=== PATIENT | female | born 1955 | race African-American/Black ===

== ENCOUNTER 2018-04-29 13:04 | Emergency (ER) | payer OTHER ==
[2018-04-29 13:18] VITALS: BP 129/69; PULSE 89; TEMP 98.2; BMI 27.4
[2018-04-29] MEDS ORDERED: DIPHTH,PERTUSS(ACELL),TET 0.5 ML DISP.SYRIN IM ONE ×2 (15:01→15:06)
--- NOTE | 2018-04-29 15:08 | PDOC ---
History of Present Illness - General Chief Complaint: Injury Stated Complaint: CUT FINGER Time Seen by Provider: 04/29/18 14:33 History Source: Patient Exam Limitations: Clinical Condition - History of Present Illness Initial Comments: 04/29/18 15:02 Patient with history of insulin-dependent diabetes present with complaining laceration to right thumb from a kitchen knife. She reported binding new knife and was cutting vegetables and hand slipped and cut right thumb on a knife. Patient does not recall last tetanus vaccine. Patient denies numbness or tingling sensation to finger. Denies any other symptoms Timing/Duration: 1-3 hours Past History - Past Medical History Allergies/Adverse Reactions: Allergies Allergy/AdvReac Type Severity Reaction Status Date / Time ibuprofen Allergy Severe Hives Verified 05/16/11 09:53 Home Medications: Ambulatory Orders Glyburide [Micronase] 5 mg PO DAILY 05/16/11 Insulin Glargine,Hum.rec.anlog [Lantus] 100 units SQ DAILY 05/16/11 Amox-Tr/K Cl [Augmentin - 875Mg Tablet] 1 tab PO BID #14 tablet 04/29/18 COPD: No Diabetes: Yes (IDDM) - Immunization History Immunization Up to Date: Yes - Suicide/Smoking/Psychosocial Hx Smoking Status: No Smoking History: Never smoked Number of Cigarettes Smoked Daily: 0 Information on smoking cessation initiated: No Hx Alcohol Use: No Drug/Substance Use Hx: No Review of Systems - Review of Systems Able to Perform ROS?: Yes Is the patient limited Portuguese proficient: No Constitutional: No: Chills, Fever, Malaise, Weakness HEENTM: No: Symptoms Reported Respiratory: No: Symptoms reported Cardiac (ROS): No: Symptoms Reported Musculoskeletal: Yes: See HPI, Muscle Pain (over laceration of right thumb) Integumentary: Yes: See HPI, Other (laceration to tip of right thumb) Neurological: No: Numbness, Paresthesia, Tingling All Other Systems: Reviewed and Negative *Physical Exam - Vital Signs Last Vital Signs Temp Pulse Resp BP Pulse Ox 98.2 F 89 16 129/69 98 04/29/18 13:14 04/29/18 13:14 04/29/18 13:14 04/29/18 13:14 04/29/18 13:14 - Physical Exam Comments: 04/29/18 15:05 GENERAL: Well developed, well nourished. Awake and alert. No acute distress. CARDIOVASCULAR: Regular rate and rhythm. No murmurs, rubs, or gallops. PULMONARY: No evidence of respiratory distress. Lungs clear to auscultation bilaterally. No wheezing, rales or rhonchi. ABDOMINAL: Soft. Non-tender. Non-distended. No rebound or guarding. No organomegaly. Normoactive bowel sounds MUSCULOSKELETAL : mild tenderness to centimeters laceration with a flap to tip of right thumb with minimal bleeding. Free range of motion of thumb. SKIN: Warm and dry. Normal capillary refill. 2 cm Laceration with a flap to distal tip of right thumb with minimal bleeding. N EUROLOGICAL: Alert, awake, appropriate. No motor deficits in the thumb. Gait is normal without ataxia. PSYCHIATRIC: Cooperative. Good eye contact. Appropriate mood and affect. General Appearance: Yes: Nourished, Appropriately Dressed. No: Apparent Distress Moderate Sedation - Procedure Monitoring Vital Signs: Procedure Monitoring Vital Signs Temperature 98.2 F 04/29/18 13:14 Pulse Rate 89 04/29/18 13:14 Respiratory Rate 16 04/29/18 13:14 Blood Pressure 129/69 04/29/18 13:14 O2 Sat by Pulse Oximetry (%) 98 04/29/18 13:14 Procedures - Laceration/Wound Repair Right Lateral Plantar Finger 1st digit Wound Length: to 2.5 cm (2cm) Wound Explored: clean, no foreign body present Wound's Depth, Shape: flap Irrigated w/ Saline: Yes Betadine Prep: Yes Amount of Anesthetic (ccs): 0 Wound Repaired With: Dermabond Layer Closure: No Sterile Dressing Applied: Yes Splint Applied: No Sling Applied: No Medical Decision Making - Medical Decision Making 04/29/18 15:08 Patient presented with laceration to tip of right thumb for moderate kitchen knife this morning. Patient does not recall last tetanus vaccine. Exam significant for 2 cm laceration with a flap to distal tip of distal phalange of right thumb with bleeding. Bleeding controlled with pressure to the wound. Wound cleaned and closed with Betadine. Hemostasis achieved. Steri- Strips applied to wound. Right thumb wrapped with finger gauze to protect his finger. Patient is stable for discharge on Augmentin for infection prophylaxis. Tetanus vaccine given. Patient educated on home wound care. *DC/Admit/Observation/Transfer Diagnosis at time of Disposition: Laceration of thumb without damage to nail Qualifiers: Encounter type: initial encounter Foreign body presence: without foreign body Laterality: right Qualified Code(s): S61.011A - Laceration without foreign body of right thumb without damage to nail, initial encounter - Discharge Dispostion Disposition: HOME Condition at time of disposition: Stable Decision to Admit order: No - Prescriptions Prescriptions: Amox-Tr/K Cl [Augmentin - 875Mg Tablet] 1 tab PO BID #14 tablet - Referrals Referrals: Sole Vergara MD [Primary Care Provider] - - Patient Instructions Printed Discharge Instructions: DI for Laceration Repair With Dermabond Additional Instructions: Keep wound dry for the next 24 hours. Change dressing to wound after 48 hours and apply Neosporin or bacitracin to wound twice a day on to fully healed., To emergency room if numbness or tingling sensation to finger or worsening bleeding. - Post Discharge Activity
== END 2018-04-29 15:23 | disposition home or self-care (01) ==
LOC: JERFT 13:04
PROC: 3E0234Z Introduction of Serum, Toxoid and Vaccine into Muscle, Percutaneous Approach (ICD-10-PCS; principal; 2018-04-29)
PROC: 0HQFXZZ Repair Right Hand Skin, External Approach (ICD-10-PCS; 2018-04-29)
DX: S61.011A Laceration without foreign body of right thumb without damage to nail, initial encounter (principal); W26.0XXA Contact with knife, initial encounter; Y93.G1 Activity, food preparation and clean up; Y92.030 Kitchen in apartment as the place of occurrence of the external cause; Y99.8 Other external cause status; E11.9 Type 2 diabetes mellitus without complications; Z79.4 Long term (current) use of insulin
CPT/HCPCS: 12001; 90471; 90715; 99281-25

== ENCOUNTER 2019-04-15 22:39 | Emergency (ER) | payer OTHER ==
[2019-04-15 22:48] VITALS: BMI 25.8
--- NOTE | 2019-04-15 23:19 | PDOC ---
History of Present Illness - General Chief Complaint: Nausea/Vomiting Stated Complaint: VOMITING/DIARRHEA Time Seen by Provider: 04/15/19 23:18 - History of Present Illness Initial Comments: HPI: 63yo F with PMH of asthma presenting with vomiting, diarrhea, and abdominal pain. The pain started around 1pm and is described as "sharp." Patient has never had pain like this before. Took pepto bismol at home without relief of pain. Surgical history includes . Has had over five episodes of "bitter " tasting nonbloody vomit as well as over ten episodes of diarrhea. Patient denies recent travel or eating anything unusual. No sick contacts. Takes metformin and insulin for her diabetes and sugars have been under control. Had a colonoscopy about five years ago which showed polyps that were removed. Without urinary symptoms. No fever, but endorses chills. Denies chest pain or shortness of breath. ROS: Constitutional: no fever, +chills HEENT: no throat pain, no dysphagia Cardiovascular: no chest pain, no palpitations Respiratory: no cough, no shortness of breath Gastrointestinal: +abdominal pain, +vomiting Genitourinary: no dysuria, no hematuria Musculoskeletal: no myalgia, no arthralgia Skin: no rash, no itching Neurologic: no headache, no weakness Psych: no agitation, no anxiety PE: General: Awake, alert, and fully oriented, in no acute distress Head: No signs of trauma Eyes: EOMI, sclera anicteric ENT: Moist mucus membranes Neck: Normal ROM, supple Lungs: Lungs clear, Normal breath sounds Cardio: Regular rhythm, S1 and S2 present Abdomen: Diffusely tender to palpation, +guarding, No CVA tenderness Extremities: Normal range of motion, Distal pulses present SKIN: Warm, Dry, normal turgor Neurologic: Cranial nerves II through XII grossly intact. Normal speech ED Course/MDM: DDX including but not limited to gastroenteritis, gastritis, gastroparesis, SBO , ACS, appendicitis, diverticulitis, nephrolithiasis, pancreatitis Labs, EKG CTAP with IV contrast Morphine Zofran Fluids Famotidine 04/15/19 23:19 CBC hemolyzed; re-ordered and resent Pain improved, now 5/[address] scan 04/16/19 01:47 CBC WBC 11.9 K/mm3 (4.0-10.0) H 04/16/19 01:45 Corrected WBC (auto) Cancelled 04/16/19 00:57 RBC 4.32 M/mm3 (3.60-5.2) 04/16/19 01:45 Hgb 13.1 GM/dL (10.7-15.3) 04/16/19 01:45 Hct 40.1 % (32.4-45.2) 04/16/19 01:45 MCV 92.9 fl (80-96) 04/16/19 01:45 MCH 30.3 pg (25.7-33.7) 04/16/19 01:45 MCHC 32.7 g/dl (32.0-36.0) 04/16/19 01:45 RDW 14.2 % (11.6-15.6) 04/16/19 01:45 Plt Count 215 K/MM3 (134-434) 04/16/19 01:45 MPV 9.2 fl (7.5-11.1) 04/16/19 01:45 Absolute Neuts (auto) 10.7 K/mm3 (1.5-8.0) H 04/16/19 01:45 Absolute Lymphs (auto) Cancelled 04/16/19 00:57 Absolute Monos (auto) Cancelled 04/16/19 00:57 Absolute Eos (auto) Cancelled 04/16/19 00:57 Absolute Basos (auto) Cancelled 04/16/19 00:57 Add Manual Diff Cancelled 04/16/19 00:57 Neutrophils % 90.1 % (42.8-82.8) H 04/16/19 01:45 Lymphocytes % 4.1 % (8-40) L 04/16/19 01:45 Monocytes % 5.2 % (3.8-10.2) 04/16/19 01:45 Eosinophils % 0.1 % (0-4.5) 04/16/19 01:45 Basophils % 0.5 % (0-2.0) 04/16/19 01:45 Nucleated RBC % 0 % (0-0) 04/16/19 01:45 Platelet Estimate Cancelled 04/16/19 00:57 Platelet Comment Cancelled 04/16/19 00:57 Normal RBC Morphology Cancelled 04/16/19 00:57 Mild leukocytosis CMP Sodium 141 mmol/L (136-145) 04/16/19 00:57 Potassium 3.7 mmol/L (3.5-5.1) 04/16/19 00:57 Chloride 108 mmol/L (98-107) H 04/16/19 00:57 Carbon Dioxide 27 mmol/L (21-32) 04/16/19 00:57 Anion Gap 7 MMOL/L (8-16) L 04/16/19 00:57 BUN 11.6 mg/dL (7-18) 04/16/19 00:57 Creatinine 0.7 mg/dL (0.55-1.3) 04/16/19 00:57 Est GFR (CKD-EPI)AfAm 106.12 04/16/19 00:57 Est GFR (CKD-EPI)NonAf 91.56 04/16/19 00:57 Random Glucose 213 mg/dL (74-106) H 04/16/19 00:57 Lactic Acid 1.7 mmol/L (0.4-2.0) 04/16/19 01:45 Calcium 9.0 mg/dL (8.5-10.1) 04/16/19 00:57 Total Bilirubin 0.4 mg/dL (0.2-1) 04/16/19 00:57 AST 16 U/L (15-37) 04/16/19 00:57 ALT 27 U/L (13-61) 04/16/19 00:57 Alkaline Phosphatase 91 U/L (45-117) 04/16/19 00:57 Troponin I < 0.02 ng/ml (0.00-0.05) 04/16/19 00:57 Total Protein 6.6 g/dl (6.4-8.2) 04/16/19 00:57 Albumin 3.6 g/dl (3.4-5.0) 04/16/19 00:57 Lipase 178 U/L (73-393) 04/16/19 00:57 Electrolytes unremarkable Cr normal Lactate normal No transaminitis Lipase normal Tpn negative CT as read by imaging education faculty member: "EXAM: CT ABDOMEN AND PELVIS WITH CONTRAST No bowel obstruction or inflammation. No free fluid or free air. Normal appendix. Unremarkable liver, spleen, stomach, pancreas and gallbladder. Small cystic foci bilateral kidneys. One or more of the following dose reduction techniques were used: automated exposure control, adjustment of the mA and/or kV according to patient size, use of iterative reconstructive technique. THIS DOCUMENT HAS BEEN ELECTRONICALLY SIGNED Jonna Botello M.D" 04/16/19 03:18 UA without infection Patient feeling better and asking to go home To follow up with primary care Referral to GI Return precautions Stable for discharge Past History - Past Medical History Allergies/Adverse Reactions: Allergies Allergy/AdvReac Type Severity Reaction Status Date / Time ibuprofen Allergy Severe Hives Verified 04/15/19 22:48 Home Medications: Ambulatory Orders Glyburide [Micronase] 5 mg PO DAILY 05/16/11 Insulin Glargine,Hum.rec.anlog [Lantus] 100 units SQ DAILY 05/16/11 Amox-Tr/K Cl [Augmentin - 875Mg Tablet] 1 tab PO BID #14 tablet 04/29/18 COPD: No Diabetes: Yes (IDDM) - Immunization History Immunization Up to Date: Yes - Psycho Social/Smoking Cessation Hx Smoking Status: No Smoking History: Unknown if ever smoked Number of Cigarettes Smoked Daily: 0 Hx Alcohol Use: No Drug/Substance Use Hx: No *Physical Exam - Vital Signs Last Vital Signs Temp Pulse Resp BP Pulse Ox 100.0 F H 110 H 18 150/78 100 04/15/19 22:42 04/15/19 22:42 04/15/19 22:42 04/15/19 22:42 04/15/19 22:42 ED Treatment Course - LABORATORY CBC & Chemistry Diagram: 04/16/19 01:45 04/16/19 00:57 Discharge - Discharge Information Problems reviewed: Yes Clinical Impression/Diagnosis: Abdominal pain Qualifiers: Abdominal location: generalized Qualified Code(s): R10.84 - Generalized abdominal pain Condition: Improved Disposition: HOME - Follow up/Referral Referrals: Sole Vergara MD [Primary Care Provider] - Candy Valencia MD [Staff Physician] - - Patient Discharge Instructions Patient Printed Discharge Instructions: DI for Abdominal Pain-Adult Additional Instructions: You came into the emergency department for abdominal pain. Labs and CT imaging did not indicate acute pathology. You can take [id number] tylenol or motrin for pain. Follow the instructions on the medication bottle. Make sure you do not take too much medicine. The maximum daily dose for tylenol is 4000mg/day. The maximum daily dose for motrin is 3200mg/day. Follow-up with your primary care provider within 72 hours to discuss this ED visit and to further evaluate your symptoms. Call today or tomorrow morning and make an appointment. Your workup is not complete until you do so. We have referred you to a GI doctor. Call and make an appointment if your symptoms do not improve in the next 2-3 days. Immediate medical attention is required if you develop: worsening pain, high fevers, persistent nausea, vomiting, or any new or concerning symptoms. If you think you are having an emergency, call for emergency medical services or present to the emergency department right away. - Post Discharge Activity
[2019-04-15] MEDS ORDERED: ONDANSETRON 4 MG/2 ML VIAL IVPUSH ONE (23:50)
[2019-04-15] MEDS ORDERED: SODIUM CHLORIDE 1,000 ML IV STA (23:50)
[2019-04-15] MEDS ORDERED: morphine CARPU-JECT 4 MG/1 ML DISP.SYRIN IVPUSH ONE (23:55)
[2019-04-16] MEDS ORDERED: FAMOTIDINE 20 MG/50 ML IVPB 20 MG/50 ML MG IVPB ONE ×2 (00:22→01:20)
[2019-04-16] MEDS ORDERED: ONDANSETRON 4 MG/2 ML VIAL ONE (00:24)
[2019-04-16] MEDS ORDERED: morphine SULFATE 4 MG/ML VIAL ONE (00:24)
[2019-04-16] MEDS ORDERED: ACETAMINOPHEN 1000 MG/100 ML VIAL (NON FORMULARY) IVPB ONE (00:52)
--- NOTE | 2019-04-16 01:03 | PDOC ---
Documentation entered by Niyah Roth SCRIBE, acting as scribe for Saida Knowles MD. Saida Knowles MD: This documentation has been prepared by the Ira de león Nirvannie, SCRIBE, under my direction and personally reviewed by me in its entirety. I confirm that the documentation accurately reflects all work, treatment, procedures, and medical decision making performed by me. Attending Attestation - Resident Resident Name: Iveth Wu - ED Attending Attestation I have performed the following: I have examined & evaluated the patient, The case was reviewed & discussed with the resident, I agree w/resident's findings & plan, Exceptions are as noted - HPI HPI: 04/16/19 00:23 The patient is a 63 year old female, with a significant past medical history of IDDM, who presents to the emergency department with 1 day of abdominal pain, nausea, vomiting, and diarrhea. Patient notes her symptoms onset today at approximately 1-2pm as a sharp 8-9/10 with associated nausea, vomiting, and diarrhea. She denies recent chest pain or shortness of breath. Allergies: Ibuprofen Primary Care Physician: Sole Vallecillo - Physicial Exam PE: 04/16/19 01:02 Well-nourished well-developed 63-year-old female who presents with fever, nausea vomiting diarrhea that started today 04/16/19 01:03 Head is normocephalic atraumatic Eyes pupils equal to light and accommodation extraocular muscles are intact Neck is supple Lungs are clear to auscultation CVS is tachycardia Abdomen some diffuse abdominal tenderness No CVA tenderness Skin warm and dry Extremities no significant pitting edema, no rashes Neuro alert and oriented x3, ambulatory - Medical Decision Making 04/16/19 01:04 63-year-old female with past medical history insulin-dependent diabetes presents with 1 day of nausea vomiting and diarrhea and she had an oral temperature of 100.9 Plan CBC, IV fluids, Zofran, Offirmiv, chemistries, CT scan 04/16/19 01:[address] out [address] Arellano
[2019-04-16] MEDS ORDERED: ACETAMINOPHEN INJECTION 100 ML IVPB ONE (01:20)
[2019-04-16 01:52] LABS: BASO % 0.5 % (0-2.0); EOS % 0.1 % (0-4.5); HEMATOCRIT 40.1 % (32.4-45.2); HEMOGLOBIN 13.1 GM/dL (10.7-15.3); LYMPH % 4.1 % (8-40); MCH 30.3 pg (25.7-33.7); MCHC 32.7 g/dl (32.0-36.0); MEAN CELL VOLUME 92.9 fl (80-96); MEAN PLT VOLUME 9.2 fl (7.5-11.1); MONO % 5.2 % (3.8-10.2); NEUT % 90.1 % (42.8-82.8); PLATELET COUNT 215 K/MM3 (134-434); RBC 4.32 M/mm3 (3.60-5.2); RDW 14.2 % (11.6-15.6); WHITE BLOOD COUNT 11.9 K/mm3 (4.0-10.0)
[2019-04-16 01:55] LABS: ALBUMIN 3.6 g/dl (3.4-5.0); ALK PHOS 91 U/L (45-117); ANION GAP 7 MMOL/L (8-16); BILIRUBIN,TOTAL 0.4 mg/dL (0.2-1); BLOOD UREA NITROGEN 11.6 mg/dL (7-18); CHLORIDE 108 mmol/L (98-107); CO2 27 mmol/L (21-32); CREATININE 0.7 mg/dL (0.55-1.3); GLUCOSE,RANDOM 213 mg/dL (74-106); LIPASE 178 U/L (73-393); POTASSIUM 3.7 mmol/L (3.5-5.1); SGOT/AST 16 U/L (15-37); SGPT/ALT 27 U/L (13-61); SODIUM 141 mmol/L (136-145); TOT PROT 6.6 g/dl (6.4-8.2)
[2019-04-16 06:11] LABS: URINE APPEARANCE CLEAR; URINE BILIRUBIN NEGATIVE (NEGATIVE); URINE COLOR YELLOW; URINE GLUCOSE (UA) NEGATIVE (NEGATIVE); URINE KETONE TRACE (NEGATIVE)
[2019-04-16 06:12] LABS: PH,URINE 6.5 (5.0-8.0); URINE LEUK ESTERASE NEGATIVE (NEGATIVE); URINE NITRITE NEGATIVE (NEGATIVE); URINE PROTEIN NEGATIVE (NEGATIVE); URINE UROBILINOGEN 0.2 mg/dL (0.2-1.0)
[2019-04-16 06:13] LABS: EPI CELLS 2 /HPF (0-5/HPF); URINE RBC 3 /hpf (0-4); URINE WBC 4 /hpf (0-5)
[2019-04-16 06:47] VITALS: BP 113/71; PULSE 104; TEMP 99.7
--- NOTE | 2019-04-16 11:13 | EKG ---
Test Reason : Blood Pressure : / mmHG Vent. Rate : 109 BPM Atrial Rate : 109 BPM P-R Int : 096 ms QRS Dur : 074 ms QT Int : 488 ms P-R-T Axes : 000 032 062 degrees QTc Int : 657 ms SINUS TACHYCARDIA WITH SHORT MT BIATRIAL ENLARGEMENT NONSPECIFIC ST ABNORMALITY PROLONGED QT ABNORMAL ECG Confirmed by MD ROSALIO, LEISA ([id number]) on 04/16/2019 11:12:58 AM Referred By: Confirmed By:LEISA SANTAMARIA MD
== END 2019-04-16 06:47 | disposition home or self-care (01) ==
LOC: JER 22:39
PROC: 3E0337Z Introduction of Electrolytic and Water Balance Substance into Peripheral Vein, Percutaneous Approach (ICD-10-PCS; principal; 2019-04-15)
PROC: 3E033GC Introduction of Other Therapeutic Substance into Peripheral Vein, Percutaneous Approach (ICD-10-PCS; 2019-04-15)
PROC: 3E033NZ Introduction of Analgesics, Hypnotics, Sedatives into Peripheral Vein, Percutaneous Approach (ICD-10-PCS; 2019-04-15)
PROC: 3E0333Z Introduction of Anti-inflammatory into Peripheral Vein, Percutaneous Approach (ICD-10-PCS; 2019-04-15)
PROC: 3E033GC Introduction of Other Therapeutic Substance into Peripheral Vein, Percutaneous Approach (ICD-10-PCS; 2019-04-15)
DX: R10.9 Unspecified abdominal pain (principal); R11.2 Nausea with vomiting, unspecified; R19.7 Diarrhea, unspecified
CPT/HCPCS: 36415; 74177-TC; 80053; 81003; 83605; 83690; 84484; 85025; 87086; 87186; 93005; 93010; 96361; 96365; 96375; 99285-25; J0131; J7030

== ENCOUNTER 2023-01-08 22:35 | Emergency (ER) | payer OTHER ==
[2023-01-08 23:13] VITALS: BP 128/66; PULSE 94; RESP 16; TEMP 98.7; BMI 26.1
== END 2023-01-09 00:06 | disposition left against medical advice (07) ==
LOC: JER 22:35
DX: R25.2 Cramp and spasm (principal); M79.604 Pain in right leg; M79.605 Pain in left leg
CPT/HCPCS: 99281-25